=== PATIENT | male | born 1970 | race Caucasian/White ===

== ENCOUNTER → 2017-04-23 | Outpatient (CLI) | payer MEDICARE, MEDICAID ==
--- NOTE | 2017-04-23 10:09 | REP ---
LUMBAR SPINE, FIVE VIEWS: HISTORY: Injury. There is no acute fracture or subluxation. The L3-4 through L5-S1 intervertebral discs are decreased in height consistent with disc degeneration. Osteophytes are present throughout the lumbar spine. There is narrowing of the L5-S1 facet joints. IMPRESSION: Degenerative change as described above. Signed by Cornell Delaney MD 04/23/2017 10:30 A
--- NOTE | 2017-04-23 10:13 | REP ---
THORACIC SPINE, THREE VIEWS: HISTORY: Injury. There is no acute fracture or subluxation. The intervertebral discs are normal in height. Osteophytes are present in the mid and lower thoracic spine. IMPRESSION: There is no acute fracture or subluxation. Signed by Cornell Delaney MD 04/23/2017 10:30 A
== END ==
LOC: M WUC 09:04
PROVIDERS: ATTEND Nurse Practitioner Family
DX: M51.36 Other intervertebral disc degeneration, lumbar region (principal)